=== PATIENT | female | born 1970 | race African-American/Black ===

== ENCOUNTER 2017-07-11 16:16 | Emergency (ER) | payer OTHER ==
[~2017-07-11 16:16] MED LIST: DARV PO; LEVA250T14 PO; LORT5TAB PO; METO10TA PO; METR-1 PO; PROT40TA PO; Z.0.NO CURRENT MEDS
[2017-07-11 16:28] VITALS: BP 157/73; PULSE 91; RESP 16; TEMP 98.9; O2SAT 100
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
[2017-07-11] MEDS ORDERED: IBUPROFEN 800 MG TAB PO ONE (17:45)
[2017-07-11] MEDS ORDERED: METHOCARBAMOL 500 MG TAB PO ONE (17:45)
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
[2017-07-11] MEDS ORDERED: IBUP1TAB7 PO (18:18)
[2017-07-11] MEDS ORDERED: ROBA500T PO (18:18)
== END 2017-07-11 18:25 | disposition home or self-care (01) ==
LOC: NEPK 16:16
DX: S16.1XXA Strain of muscle, fascia and tendon at neck level, initial encounter (principal); R51 Headache; V49.40XA Driver injured in collision with unspecified motor vehicles in traffic accident, initial encounter
CPT/HCPCS: 72050; 99283; L0150